=== PATIENT | male | born 1970 | race African-American/Black ===

== ENCOUNTER 2017-03-27 11:02 | Emergency (ER) | payer MEDICAID ==
[~2017-03-27] VITALS: Ht 172.7 cm; Wt 68.0 kg
--- NOTE | 2017-03-27 11:05 | NUR ---
pt self presents to er bed 14. c/o depression w/ suicidal ideaion. plan is o run through traffic. gowned and placed on monitor. stable vitals. cooperative. denies any other complaints. awaiting md cannon.
--- NOTE | 2017-03-27 11:21 | NUR ---
dr strauss at bedside for eval.
--- NOTE | 2017-03-27 11:32 | NUR ---
laboratory analyst at bedside for blood draw.
[2017-03-27 11:42] LABS: BASOPHILS # (AUTO) 0.2 /CMM (0.0-0.2); BASOPHILS % (AUTO) 3.2 % (0.0-2.0); EOSINOPHILS # (AUTO) 0.3 /CMM (0.0-0.7); EOSINOPHILS % (AUTO) 4.6 % (0.0-6.0); HEMATOCRIT 35 % (39-51); HEMOGLOBIN 11.9 g/dL (13.5-17.5); LYMPHOCYTES # (AUTO) 1.5 /CMM (0.8-4.8); LYMPHOCYTES % (AUTO) 19.9 % (20.0-44.0); MEAN CORPUSCULAR HEMOGLOBIN 29 PG (26.0-33.0); MEAN CORPUSCULAR HGB CONC 34 g/dl (31.0-36.0); MEAN CORPUSCULAR VOLUME 86 fL (80-96); MONOCYTES # (AUTO) 0.5 /CMM (0.1-1.30); MONOCYTES % (AUTO) 7.2 % (2.0-12.0); NEUTROPHILS # (AUTO) 4.9 /CMM (1.8-8.9); NEUTROPHILS % (AUTO) 65.1 % (43.0-81.0); PLATELET COUNT (AUTO) 255 /CMM (150-450); RDW COEFFICIENT OF VARIATION 13.1 (11.5-15.0); WHITE BLOOD COUNT (AUTO) 7.4 K/uL (4.3-11.0)
[2017-03-27 11:49] LABS: APPEARANCE,URINE Clear (CLEAR); BILIRUBIN,URINE Negative (NEGATIVE); BLOOD, URINE Negative Ery/uL (NEGATIVE); COLOR,URINE Yellow (YELLOW); KETONES,URINE Negative (NEGATIVE); LEUKOCYTE ESTERASE ,URINE Negative (NEGATIVE); NITRITE, URINE Negative (NEGATIVE); PROTEIN,URINE Negative (NEGATIVE); UGLUCOSE Negative (NEGATIVE); UROBILINOGEN,URINE 0.2 EU/dL (0.2)
[2017-03-27 11:53] LABS: CALCIUM, SERUM 8.4 mg/dL (8.5-10.1); CARBON DIOXIDE 31 mmol/L (21-32); CHLORIDE 108 mmol/L (98-107); GLUCOSE 93 mg/dL (74-106); POTASSIUM 3.9 mmol/L (3.5-5.1); SODIUM SERUM 143 mmol/L (136-145); UREA NITROGEN, BLOOD 13 mg/dL (7-18)
[2017-03-27 11:59] LABS: ALANINE AMINOTRANSFERASE 50 U/L (12-78); ALBUMIN 3.3 g/dL (3.4-5.0); ALCOHOL, BLOOD < 3 mg/dL (0-0); ALKALINE PHOSPHATASE 60 U/L (46-116); ASPARTATE AMINOTRANSFERASE 35 U/L (15-37); BILIRUBIN,DIRECT 0.1 mg/dL (0.0-0.2); BILIRUBIN,TOTAL 0.3 mg/dL (0.2-1.0); TOTAL PROTEIN, SERUM 6.4 g/dL (6.4-8.2)
[2017-03-27 12:05] LABS: ACETAMINOPHEN 0 ug/ml (10-30); SALICYLATE 0.7 mg/dL (2.8-20.0)
--- NOTE | 2017-03-27 13:15 | NUR ---
pt is provided w/ meal tray. stable. nad noted.
--- NOTE | 2017-03-27 15:10 | NUR ---
pt is sleeping. easily arousable. stable vitals.
--- NOTE | 2017-03-27 15:49 | NUR ---
elzbieta rn at bedside for psych eval.
--- NOTE | 2017-03-27 17:40 | NUR ---
Jenny rendon in [facility] - 03/27/17 at 1740 by PAXTON CALLED [facility] FOR TRANSPORT TO [facility]. ETA 1 HOUR
--- NOTE | 2017-03-28 05:13 | NUR ---
facesheet and labs faxed to [facility] intake at [phone]
--- NOTE | 2017-03-28 06:55 | NUR ---
report given to Eloy PORTILLO for conitnuation of care. [facility] [id number]. [phone]
--- NOTE | 2017-03-28 06:59 | NUR ---
eta 0830 for s transport
--- NOTE | 2017-03-28 08:26 | NUR ---
REPORT GIVEN TO [facility] FOR TRANSPORT TO [facility] IN [place]
[2017-03-28 08:27] VITALS: BP 127/76
== END 2017-03-28 08:28 | disposition home or self-care (01) ==
LOC: ER 11:09
DX: R45.851 Suicidal ideations (principal); F31.9 Bipolar disorder, unspecified; I10 Essential (primary) hypertension; F17.200 Nicotine dependence, unspecified, uncomplicated
CPT/HCPCS: 36415; 80048-TC; 80076-TC; 80305; 81000-TC; 85025-TC; A4606; G0480; Z7610